=== PATIENT | female | born 1965 | race Caucasian/White ===

== ENCOUNTER 2021-02-18 13:59 | Emergency (ER) | payer BC ==
[~2021-02-18] VITALS: Ht 160 cm; Wt 73.0 kg
[~2021-02-18 13:59] MED LIST: DOXYCYC MONO100 M1 PO; MULTI PO; NAPROSYN500 MG PO; PREDNISONE10 MG PO
[2021-02-18] MEDS ORDERED: METRONIDAZOL500 MG PO (14:33)
[2021-02-18] MEDS ORDERED: ATENOLOL25 MG PO (14:33)
[2021-02-18] MEDS ORDERED: CIPROFLOXACN500 MG PO (14:34)
[2021-02-18 15:20] LABS: URINE BILIRUBIN - DIPSTICK NEGATIVE (NEGATIVE); URINE BLOOD DIPSTICK NEGATIVE (NEGATIVE); URINE COLOR YELLOW; URINE GLUCOSE - DIPSTICK NEGATIVE (NEGATIVE); URINE KETONE NEGATIVE (NEGATIVE); URINE LEUK ESTERASE NEGATIVE (NEGATIVE); URINE PROTEIN - DIPSTICK NEGATIVE (NEG-TRACE); URINE SPECIFIC GRAVITY <=1.005; URINE UROBILINOGEN - DIPSTICK 0.2 E.U./dL (0.2)
[2021-02-18 15:21] LABS: URINE NITRITE - DIPSTICK NEGATIVE (Negative)
[2021-02-18 15:59] LABS: IMMATURE GRANULOCYTES 0.4 % (0.0-5.0); MEAN CORPUSCULAR HGB 33.1 pG CALC (26.0-32.0); MEAN CORPUSCULAR HGB CONC 31.7 g/dL CAL (32.0-36.0); NEUT# 2.73 thou/uL (2.00-7.15); RED BLOOD COUNT 4.32 mill/uL (4.20-5.60); RED CELL DISTRI WIDTH 12.7 % (11.5-15.5)
[2021-02-18 16:04] LABS: HEMATOCRIT 45.1 % (37.0-47.0); HEMOGLOBIN 14.3 g/dl (12.0-16.0)
[2021-02-18 16:05] LABS: MEAN CELL VOLUME 104.4 fL CALC (80.0-100.0)
[2021-02-18 16:09] LABS: ALKALINE PHOSPHATASE 48 u/l (38-126); ANION GAP 12 (6-22 (CALC)); BUN 5 mg/dL (7-17); BUN/CREATININE RATIO 8 (12-20 (CALC)); CARBON DIOXIDE 25 mmol/l (22-30); CHLORIDE 105 mmol/l (95-108); CREATININE 0.7 mg/dL (0.5-1.0); GFR > 60 ML/MIN (>=60 (CALC)); GFR FOR AFR.AMER. > 60 ML/MIN (>=60 (CALC)); LIPASE 264 u/l (23-300); POTASSIUM 3.9 mmol/l (3.5-5.1); SODIUM 138 mmol/l (137-146); TOTAL PROTEIN 7.7 g/dL (6.3-8.2)
[2021-02-18 16:13] LABS: ALBUMIN 4.5 g/dL (3.2-5.0); BILIRUBIN, TOTAL 0.3 mg/dL (0.0-1.4); SGOT/AST 33 u/l (14-36)
[2021-02-18] MEDS ORDERED: BENTYL10 M1 PO (18:26)
[2021-02-18] MEDS ORDERED: TRAMADOL HYDROC50 M1 PO (19:16)
[2021-02-18 19:35] VITALS: BP 132/72
== END 2021-02-18 19:39 | disposition home or self-care (01) | DRG 566 ==
LOC: ED 13:59
PROVIDERS: Family Medicine
DX: M89.9 Disorder of bone, unspecified (principal); R10.32 Left lower quadrant pain; M51.36 Other intervertebral disc degeneration, lumbar region
CPT/HCPCS: Q9967